=== PATIENT | male | born 1995 | race African-American/Black ===

== ENCOUNTER 2017-02-01 22:31 | Emergency (ER) | payer OTHER ==
[~2017-02-01] VITALS: Ht 188 cm; Wt 85.0 kg
[~2017-02-01 22:31] MED LIST: ALBU6.7H INH; LORTA5 PO; PENI500T PO
[2017-02-01 22:33] VITALS: BP 157/82; PULSE 83; RESP 16; TEMP 98.5; O2SAT 97
[2017-02-01] MEDS ORDERED: DOCU100T9 PO (23:13)
[2017-02-01] MEDS ORDERED: ANUC25SU RECTAL (23:13)
--- NOTE | 2017-02-01 23:13 | PD ---
HPI Chief Complaint: Pain: Acute or Chronic Time Seen by Provider: 22:57 Travel History International Travel<30 days: No Contact w/Intl Traveler<30days: No Traveled to known affect area: No History of Present Illness HPI 19-year-old male presents emergency department complaint 2 days of rectal pain. He feels a palpable bump in the rectum. Worse with bowel movements or bearing down. History of similar problems in the past. No other complaints. History Past Medical History Medical History: Denies Significant Hx Social History Alcohol Use: No Tobacco Use: No Allergies-Medications (Allergen,Severity, Reaction): Coded Allergies: No Known Allergies (Verified , 02/01/17) Reported Meds & Prescriptions Reported Meds & Active Scripts Active No Active Prescriptions or Reported Medications Review of Systems Except as stated in HPI: all other systems reviewed are Neg Physical Exam Narrative GENERAL: Well-appearing 19 year-old woman, no acute distress. SKIN: Warm and dry. CARDIOVASCULAR: Warm and well perfused. RESPIRATORY: Normal rate and effort. : RECTAL: Large palpable tender hemorrhoid. No bleeding. NEUROLOGICAL: Awake and alert. No gross deficits. Data Data Last Documented VS Vital Signs Date Time Temp Pulse Resp B/P (MAP) Pulse Ox O2 Delivery O2 Flow Rate FiO2 02/01/17 22:33 98.5 83 16 157/82 (107) 97 Room Air [facility] Medical Decision Making Medical Screen Exam Complete: Yes Emergency Medical Condition: Yes Differential Diagnosis Hemorrhoid, wart, fissure, other Narrative Course Medical decision-making new para 21-year-old with large painful hemorrhoid. Recommend stool softeners, suppositories. Diagnosis Primary Impression: Hemorrhoids Additional Instructions: Use stool softeners as prescribed. Use cortisone suppositories as prescribed. Return to the emergency department for any new or worsening symptoms. Med/Other Pt SpecificInfo: Prescription(s) given Scripts Docusate Sodium (Docusate Sodium) 100 Mg Tab 100 MG PO BID for 10 Days, #20 TAB Prov: Warner Irby MD 02/01/17 Hydrocortisone Acetate Supp (Anucort-Hc Supp) 25 Mg Supp 25 MG RECTAL TID for Hemorrhoids, #21 SUPP 0 Refills Prov: Warner Irby MD 02/01/17 Disposition: 01 DISCHARGE HOME Condition: Stable Warner Irby MD Feb 01, 2017 23:13
== END 2017-02-01 23:51 | disposition home or self-care (01) ==
LOC: NEPD 22:31
DX: K64.9 Unspecified hemorrhoids (principal)
CPT/HCPCS: 99282